=== PATIENT | male | born 1985 | race Two or more races ===

== ENCOUNTER 2017-10-23 02:12 | Emergency (ER) | payer OTHER ==
[~2017-10-23] VITALS: Ht 190.5 cm; Wt 83.5 kg
--- NOTE | 2017-10-23 02:50 | Emergency Room Report ---
History of Present Illness General Chief Complaint: Back Pain-No Injury Source: Patient Present Illness HPI Is a 32-year-old male with no significant past medical history. He is here with his girlfriend for the same complaint. He has abdominal pain with nausea vomiting and diarrhea for the last 3 days. Subjective fever chills. Vomiting is nonbloody nonbilious. Pain is crampy also with right flank pain for the last 2 weeks. No dysuria frequency. No hematuria. Pain is 7/10. Allergies: Coded Allergies: No Known Allergies (Unverified , 10/23/17) Patient History Past Medical History: none, see triage record, old chart reviewed Past Surgical History: none Pertinent Family History: none Social History: Denies: smoking Immunizations: other Reviewed Nursing Documentation: PMH: Agreed, PSxH: Agreed Nursing Documentation-PMH Past Medical History: No Stated History Review of Systems Constitutional: Reports: fever Eye: Denies: eye pain, blurred vision ENT: Reports: throat pain, throat swelling, Denies: ear pain, nose congestion Respiratory: Denies: cough, shortness of breath Cardiovascular: Denies: chest pain, palpitations Gastrointestinal: Reports: abdominal pain, diarrhea, nausea, vomiting Musculoskeletal: Denies: back pain, joint pain Skin: Denies: rash Neurological: Denies: headache, numbness Endocrine: Denies: increased thirst, increased urine Hematologic/Lymphatic: Denies: easy bruising All Other Systems: negative except mentioned in HPI Physical Exam Vital Signs Date Time Temp Pulse Resp B/P (MAP) Pulse Ox O2 Delivery O2 Flow Rate FiO2 10/23/17 02:24 98.9 77 18 117/74 96 Room Air 99.0 vitals unremarkable Sp02 EP Interpretation: reviewed, normal General Appearance: well appearing, no apparent distress, alert Head: normocephalic, atraumatic Eyes: bilateral eye PERRL, bilateral eye EOMI ENT: hearing grossly normal, normal pharynx, tonsillar swelling, tonsillar exudate Neck: full range of motion, supple, no meningismus, tender - adenopathy Respiratory: chest non-tender, lungs clear, normal breath sounds Cardiovascular #1: regular rate, rhythm, no murmur Gastrointestinal: normal bowel sounds, no mass, no organomegaly, no bruit, non- distended, tenderness - Mild, diffuse Musculoskeletal: back normal, gait/station normal, normal range of motion Psychiatric: mood/affect normal Skin: warm/dry Medical Decision Making Diagnostic Impression: Primary Impression: Acute bacterial tonsillitis Additional Impressions: Abdominal pain Qualified Codes: R10.84 - Generalized abdominal pain Gastroenteritis ER Course This with fever, sore throat and abdominal pain. Most likely viral/influenza- like illness. His outside of the window for Tamiflu treatment. He does have exudates on his tonsil in with a white count and fever, I will go ahead and treat with antibiotics. No evidence of obstruction. No evidence of acute abdomen. He felt better now. We'll discharge home. Lab Results Impression labs with leukocytosis CT/MRI/US Diagnostic Results CT/MRI/US Diagnostic Results : Imaging Test Ordered: CT ab/pelvis Impression Read by radiologist. gastroenteritis. Last Vital Signs Date Time Temp Pulse Resp B/P (MAP) Pulse Ox O2 Delivery O2 Flow Rate FiO2 10/23/17 02:24 98.9 77 18 117/74 96 Room Air 99.0 Status: improved Disposition: HOME, SELF-CARE Condition: Stable Scripts Ibuprofen* (MOTRIN*) 600 Mg Tablet 600 MG ORAL Q8H Y for For Pain, #30 TAB 0 Refills Prov: YOBANI DUCKWORTH M.D. 10/23/17 Amoxicillin* (AMOXIL*) 500 Mg Capsule 500 MG ORAL THREE TIMES A DAY, #21 CAP Prov: YOBANI DUCKWORTH M.D. 10/23/17 Referrals: [facility],REFERRING (PCP) Additional Instructions: Followup with your DrDg in 2-3 days. Return if symptom worsen. YOBANI DUCKWORTH M.D. Oct 23, 2017 02:49
[2017-10-23] MEDS ORDERED: Ketorolac 30mg Inj IV ONE (03:00)
[2017-10-23 03:07] LABS: HEMATOCRIT 42.2 % (42.0-52.0); HEMOGLOBIN 14.9 G/DL (14.2-18.0); MEAN CORPUSCULAR VOLUME 90 FL (80-99); PLATELET COUNT 228 K/UL (150-450); RED BLOOD COUNT 4.67 M/UL (4.70-6.10); RED CELL DISTRIBUTION WIDTH 12.4 % (11.6-14.8); WHITE BLOOD COUNT 20.7 K/UL (4.8-10.8)
[2017-10-23 03:10] LABS: APPEARANCE,URINE CLEAR; BILIRUBIN, URINE NEGATIVE (NEGATIVE); COLOR,URINE BROWN; GLUCOSE, URINE (UA) NEGATIVE (NEGATIVE); KETONES,URINE NEGATIVE (NEGATIVE); LEUKOCYTE ESTERASE ,URINE 1+ (NEGATIVE); NITRITE,URINE NEGATIVE (NEGATIVE); PH,URINE 5 (4.5-8.0); PROTEIN,URINE 2+ (NEGATIVE); UROBILINOGEN,URINE 4 MG/DL (0.0-1.0)
[2017-10-23 03:15] LABS: ANION GAP 6 mmol/L (5-15); BLOOD UREA NITROGEN 13 mg/dL (7-18); CALCIUM 9.3 MG/DL (8.5-10.1); CARBON DIOXIDE 28 MMOL/L (21-32); CHLORIDE 102 MMOL/L (98-107); CREATININE 0.9 MG/DL (0.55-1.30); SODIUM 136 MMOL/L (136-145)
[2017-10-23 03:19] LABS: ALANINE AMINOTRANSFERASE 30 U/L (12-78); ALBUMIN 3.4 G/DL (3.4-5.0); ALBUMIN/GLOBULIN RATIO 0.9 (1.0-2.7); ALKALINE PHOSPHATASE 82 U/L (46-116); ASPARTATE AMINO TRANSFERASE 22 U/L (15-37); BILIRUBIN,TOTAL 0.5 MG/DL (0.2-1.0)
[2017-10-23] MEDS ORDERED: HYDROmorphone 1mg/ml Carpuject IVP ONE (03:45)
[2017-10-23] MEDS ORDERED: IBUPROFEN600 MG ORAL (06:08)
[2017-10-23] MEDS ORDERED: AMOXICILLIN500 MG ORAL (06:08)
[2017-10-23 06:30] VITALS: BP 115/71
[2017-10-23 06:31] VITALS: BP 117/74
--- NOTE | 2017-10-23 09:42 | Diagnostic Imaging Report ---
Indication: Abdominal pain Technique: Continuous helical transaxial imaging of the abdomen and pelvis was obtained from the lung bases to the pubic symphysis during intravenous contrast administration. Coronal 2-D reformats were also obtained. Study obtained in a Siemens sensation [address] Automatic Exposure Control was utilized. Total Dose length Product (DLP): 557.[address] Dose Index Volume (CTDIvol): 10.75 mGy Comparison: None Findings: Lung bases are clear. Solid organs are unremarkable including the liver and kidneys. No free air or free fluid identified. The exam is limited due to very little abdominal fat. No evidence of bowel obstruction, free air or free fluid. Gallbladder is grossly unremarkable. Administration of intravenous contrast precludes evaluation for tiny nonobstructive renal stones which may be easily missed on the current study is obtained. IMPRESSION: No acute findings with some limitations as above [facility] has communicated the preliminary results to the Emergency Department. Their findings are largely concordant with this report. The CT scanner at [facility] is accredited by the [employer] and the scans are performed using dose optimization techniques as appropriate to a performed exam including Automatic Exposure control.
== END 2017-10-23 06:33 | disposition home or self-care (01) ==
LOC: EDBD 02:47 → EMR 02:47
DX: K52.9 Noninfective gastroenteritis and colitis, unspecified (principal); R10.84 Generalized abdominal pain; J03.90 Acute tonsillitis, unspecified
CPT/HCPCS: 36415; 74177; 80053; 81003; 83690; 85007; 85025; 96361; 96374; 96375; 99284; J1170; J1885; J2405; Q9967

== ENCOUNTER 2017-10-27 18:38 | Emergency (ER) | payer OTHER ==
[~2017-10-27] VITALS: Ht 190.5 cm; Wt 84.4 kg
[~2017-10-27 18:38] MED LIST: AMOXICILLIN500 MG ORAL; IBUPROFEN600 MG ORAL
[2017-10-27] MEDS ORDERED: NKM (18:48)
--- NOTE | 2017-10-27 19:13 | Emergency Room Report ---
History of Present Illness General Chief Complaint: Behavioral Complaint Source: Patient Present Illness HPI Patient presents asking for psychiatric help. States he cut into his L forearm with finger nails. States he did and does not want to end his life. "Just stressed". His girlfriend is (recently found out) and he want to keep the baby. She has scheduled a termination next Tuesday. He has been having trouble sleeping. Self medicating with THC but states he feels not helping a this time. Not seeing any therapist/psychiatrist. Does eat, but decreased amounts recently. Tetanus UTD. Never tried to harm self. Was diagnosed with Bipolar disorder, but no medication since age 20. No fevers, cough, sore throat, chest pain, abdominal pain, other rashes, headache, NVD, dysuria. Allergies: Coded Allergies: No Known Allergies (Unverified , 10/23/17) Patient History Past Medical History: see triage record Social History: Reports: smoking, drug use - THC, Denies: alcohol use Social History Narrative living with room mates (girlfriend is one) Reviewed Nursing Documentation: PMH: Agreed, PSxH: Agreed Nursing Documentation-PMH Past Medical History: No History, Except For History Of Psychiatric Problem: Yes - Bipolar Review of Systems All Other Systems: negative except mentioned in HPI Physical Exam Vital Signs Date Time Temp Pulse Resp B/P (MAP) Pulse Ox O2 Delivery O2 Flow Rate FiO2 10/27/17 18:45 98.2 73 16 148/90 100 Room Air 98.2 Sp02 EP Interpretation: reviewed, normal General Appearance: well appearing, no apparent distress, GCS 15 Head: normocephalic Eyes: bilateral eye PERRL, bilateral eye Scleral Injection ENT: moist mucus membranes Neck: supple Respiratory: lungs clear, normal breath sounds Cardiovascular #1: regular rate, rhythm Cardiovascular #2: 2+ radial (R) Gastrointestinal: normal inspection, normal bowel sounds, non tender, no mass, non-distended Musculoskeletal: back normal, gait/station normal, normal range of motion Neurologic: alert, oriented x3, grossly normal Psychiatric: depressed affect Suicide Risk Assessment: Suicidal Ideation: No Had intent to initiate attempt: No Pt's plan for suicide attempt: No Has means to complete attempt: Yes Skin: warm/dry, abrasions - linear, superficial L forearm Medical Decision Making Diagnostic Impression: Primary Impression: Situational depression Additional Impressions: Abrasion of left forearm Qualified Codes: S50.812A - Abrasion of left forearm, initial encounter H/O bipolar disorder ER Course Patient presents with intention baires L forearm. DDx: SI, exacerbation of bipolar disorder, insomnia, abrasions. At this point patient denies SI but wants help. Also requesting something to help him sleep. VS stable and no labs indicated. Needs wound care. Declines pain medicine. Long discussion with patient regarding resources where he can get psychiatric help. He contracts for safety and denies SI or HI at this time. Patient given psychiatric referral and Vistaril rx. Patient stable for outpatient observation and treatment. Last Vital Signs Date Time Temp Pulse Resp B/P (MAP) Pulse Ox O2 Delivery O2 Flow Rate FiO2 10/27/17 19:40 98.2 18 140/88 100 Room Air 98.2 10/27/17 19:40 83 Status: improved Disposition: HOME, SELF-CARE Condition: Improved Scripts Bacitracin (Bacitracin) 28.4 Gm Oint...g. 1 APPLIC TOPIC BID, #14 GM Prov: Sal Mejia M.D. 10/27/17 Hydroxyzine Pamoate (VISTARIL) 25 Mg Capsule 25 MG PO Q8HR Y for insomnia, #10 CAP Prov: Sal Mejia M.D. 10/27/17 Sal Mejia M.D. Oct 27, 2017 19:13
[2017-10-27] MEDS ORDERED: Bacitracin Oint UD TOPIC ONE (19:15)
[2017-10-27] MEDS ORDERED: BACITRACIN15 GM TOPIC (19:17)
[2017-10-27] MEDS ORDERED: VISTARIL25 M1 PO (19:17)
[2017-10-27 19:40] VITALS: BP 140/88
== END 2017-10-27 19:40 | disposition home or self-care (01) ==
LOC: EMR 19:18
DX: F43.21 Adjustment disorder with depressed mood (principal); S50.812A Abrasion of left forearm, initial encounter; X78.8XXA Intentional self-harm by other sharp object, initial encounter; Y92.9 Unspecified place or not applicable; F31.9 Bipolar disorder, unspecified
CPT/HCPCS: 99283